=== PATIENT | male | born 1990 | race Caucasian/White ===

== ENCOUNTER 2020-10-30 | Emergency (ER) | payer SELFPAY | END 2020-10-30 10:30 | disposition home or self-care (01) | DX: L03.116 Cellulitis of left lower limb (principal) ==

== ENCOUNTER 2022-09-10 10:38 | Emergency (ER) | payer SELFPAY ==
[2022-09-10] MEDS ORDERED: Boostrix 0.5 ML (Tdap) VIAL (>/=7 yrs of age) ONE (11:01)
== END 2022-09-10 12:29 | disposition home or self-care (01) ==
LOC: BURERS 10:38
DX: S00.93XA Contusion of unspecified part of head, initial encounter (principal); W55.22XA Struck by cow, initial encounter
CPT/HCPCS: 70450; 72125; 90471; 90715